=== PATIENT | male | born 1980 | race Caucasian/White ===

== ENCOUNTER 2016-07-03 19:19 | Emergency (ER) | payer OTHER ==
--- NOTE | ~2016-07-03 | CT71 ---
[facility] A Service of [facility] RADIOLOGY TEXT RESULTS PATIENT: DANUTA SCHMITZ LOCATION: [place] : 82 UNIT #: [id number] AGE: [address]: Amos Del Angel MD SEX: M ORDER DR: [id number] [facility] [address] [place], [place] [address] [id number] E MR#: [id number] Acc #: [id number] NAME: DANUTA SCHMITZ : 1980 SEX: M STUDY DATE/TIME: 07/03/2016 18:22 UNIT: [place] ROOM: STUDY DESCRIPTION: CT Head Wo Contrast Attending Physician: Adebayo Gardner M.D. Ordering Physician: Per Rg D.O. Primary Care Physician: Cheko Joaquin M.D. MEDICAL IMAGING REPORT This report is preliminary unless electronic signature is present EXAM Noncontrast head CT HISTORY Possible overdose, [facility] COMPAR[facility] Head CT 11/12/[address] exam was performed with one or more of the following radiation dose reduction techniques: Automatic exposure control, adjustment of mA and/or kV according to patient size, and iterative reconstruction. Axial noncontrast imaging of the brain demonstrates the brain parenchyma to be normal. No mass, mass effect or midline shift, no hemorrhage or abnormal extraaxial fluid collections. Small retention cyst right ethmoid sinus and probable left maxillary sinus. IMPRESSION Negative noncontrast head CT. Dictated by... Yung Childers M.D. THIS IS AN ELECTRONICALLY VERIFIED REPORT Yung Childers M.D. at 07/04/2016 2:02 PM JENNA/marita TD: 07/03/2016 21:48 JOB #: [id number] [facility] A Service [facility] RADIOLOGY TEXT RESULTS PATIENT: DANUTA SCHMITZ LOCATION: [place] : [birth year] UNIT #: [id number] AGE: [address]: Amos Del Angel MD SEX: M ORDER DR: MEDICAL IMAGING REPORT Page 1 of 1 COPY
--- NOTE | ~2016-07-03 | CR72 ---
[facility] A Service of [facility] RADIOLOGY TEXT RESULTS PATIENT: DANUTA SCHMITZ LOCATION: [facility] : [birth year] UNIT #: [id number] AGE: [address]: Amos Del Angel MD SEX: M ORDER DR: [id number] [facility] [address] [place], [place] [address] [id number] E MR#: [id number] Acc #: [id number] NAME: DANUTA SCHMITZ : 1980 SEX: M STUDY DATE/TIME: 07/03/2016 18:14 UNIT: [facility] ROOM: STUDY DESCRIPTION: CR Chest Single View Portable Attending Physician: Adebayo Gardner M.D. Ordering Physician: Per Rg D.O. Primary Care Physician: Cheko Joaquin M.D. MEDICAL IMAGING REPORT This report is preliminary unless electronic signature is present EXAM Portable chest. HISTORY Overdose, altered mental status today. COMPARISON 12/07/2010 FINDINGS Portable view of the chest demonstrates no acute cardiopulmonary disease. 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 No effusions or pneumothorax. Dictated by... Yung Childers M.D. THIS IS AN ELECTRONICALLY VERIFIED REPORT Yung Childers M.D. at 07/04/2016 2:03 PM JENNA/jean-paul TD: 07/03/2016 22:02 JOB #: [id number] MEDICAL IMAGING REPORT Page 1 of 1 COPY
[2016-07-03 18:46] LABS: ALKALINE PHOSPHATASE 52 U/L (32-92); ALT (SGPT) 76 U/L (10-40); AST (SGOT) 33 U/L (10-42); BILIRUBIN, DIRECT 0.1 mg/dL (0.0-0.2); BILIRUBIN,INDIRECT 0.6 mg/dL (0.0-0.9); BILIRUBIN,TOTAL 0.7 mg/dL (0.2-2.0); BLOOD UREA NITROGEN 11 mg/dL (9-23); BUN/CREATININE RATIO 13.75; CALCIUM SERUM 8.5 mg/dL (8.4-10.2); CARBON DIOXIDE 23 mmol/L (22-31); CHLORIDE 104 mmol/L (100-111); CREATININE SERUM 0.8 mg/dL (0.6-1.4); GLOM FILT RATE Estimated 116.6 mL/min (>60); GLUCOSE FASTING 114 mg/dL (70-110); POTASSIUM 3.6 mmol/L (3.5-5.1); PROTEIN TOTAL SERUM 6.7 g/dL (6.0-8.3); SALICYLATE <4.0 mg/dL; SODIUM 137 mmol/L (135-145)
[2016-07-03 18:47] LABS: ACETAMINOPHEN <10 ug/mL; ALCOHOL BLOOD <5 mg/dL (0)
[~2016-07-03 19:19] MED LIST: ALBUTEROL17 G1 IH; DICLOFENAC PO; FLEXERIL PO; IBUPROFEN800 MG PO; LORTAB 5/500 TA1 TA1 PO; TYLOX 5/500 CAP1 CAP PO; ZITHROMAX1 G/PKT PO; ZOFRAN PO
[2016-07-04 01:47] LABS: URINE SOURCE CLEAN CATCH
[2016-07-04 01:53] LABS: URINE APPEARANCE CLEAR; URINE BILIRUBIN NEG (NEG); URINE BLOOD TRACE (NEG); URINE COLOR YELLOW; URINE GLUCOSE NEG (NEG); URINE KETONE 1+ (NEG); URINE LEUKOCYTE ESTERASE NEG (NEG); URINE NITRATE NEG (NEG); URINE PH 6.5 (5-8); URINE PROTEIN NEG (NEG)
[2016-07-04 01:56] LABS: URINE BACTERIA AUWI NEG (NEGATIVE); URINE SQUAMOUS EPITHELIAL CELL NONE SEEN /[HPF]; UWBCS1 AUWI 0-2 (0-5)
[2016-07-04 01:57] LABS: CULTURE INDICATED? NO
[2016-07-04 02:03] LABS: AMPHETAMINE POS (NEG); BARBITURATES NEG (NEG); BENZODIAZEPINES POS (NEG); COCAINE NEG (NEG); MARIJUANA NEG (NEG); OPIATES NEG (NEG); TRICYCLIC ANTIDEPRESSANTS POS (NEG); U METHADONE NEG (NEG)
== END 2016-07-04 05:55 | disposition home or self-care (01) ==
LOC: CED 19:19
PROVIDERS: Emergency Medicine
DX: F19.129 Other psychoactive substance abuse with intoxication, unspecified (principal); Z88.0 Allergy status to penicillin
CPT/HCPCS: 36415; 70450; 71010; 80048; 80076; 80307; 81003; 82140; 96372; 99284; G0480; J3486